=== PATIENT | male | born 1965 | race Caucasian/White ===

== ENCOUNTER 2019-11-10 14:32 | Emergency (ER) | payer BC ==
--- NOTE | 2019-11-10 14:38 | PDOC ---
History of Present Illness - General Chief Complaint: Injury Stated Complaint: FELL LAST NIGHT, FACIAL LACERATION Time Seen by Provider: 11/10/19 14:34 History Source: Patient Exam Limitations: No Limitations - History of Present Illness Initial Comments: 11/10/19 18:07 54M PMH DM, HTN presenting after a fall down 4 steps last night w/ head strike on treadmill. + Laceration. Denies LOC. Eval'd by EMS at time of incident but did not go to hospital. Endorses 1/2 pint cognac 5 hours before incident. Endorses pain of the right shoulder and left wrist. Denies f/c, cp/sob, n/v. N oncompliant w/ meds; NKA; PCP in the [place]. Does not know when last tetanus was. Past History - Past Medical History Allergies/Adverse Reactions: Allergies Allergy/AdvReac Type Severity Reaction Status Date / Time No Known Allergies Allergy Verified 11/10/19 14:42 Home Medications: Ambulatory Orders Losartan/Hydrochlorothiazide 11/10/19 Metformin HCl 11/10/19 Metoprolol Succinate 11/10/19 Review of Systems - Review of Systems Able to Perform ROS?: Yes Comments:: 11/10/19 18:07 CONSTITUTIONAL: Denies F / C HEENT: Denies changes in vision / hearing, diplopia, blurry vision RESP: Denies SOB CARD: Denies chest pain GI: Denies N / V / D, abdominal pain, bloody stool, inability to tolerate PO : Denies dysuria, hematuria, frequency SKIN: Denies rashes NEURO: Denies numbness, tingling, weakness MSK: Denies back pain *Physical Exam - Vital Signs 11/10/19 18:07 Vital Signs Temp Pulse Resp BP Pulse Ox 98.3 F 80 20 140/91 100 11/10/19 16:46 11/10/19 16:46 11/10/19 16:46 11/10/19 16:46 11/10/19 16:46 - Physical Exam 11/10/19 18:07 GEN: Well appearing, NAD, comfortable. AAOx3. HEENT: Hematoma w/ dried blood over the right brow otherwise no raccoon eyes, dai sign, obvious skull deformities; EOMI, PERRL. No facial asymmetry. Moist mucous membranes. Normal voice. Supple neck w/ FROM. CV: S1/S2, RRR, no m/r/g LUNG: CTAB, no wheezes, crackles, rales, rhonchi. GI: Soft, ndnt, +BS, no guarding, no rebound. No masses. MSK: No obvious deformities of all extremities. No TTP of the shoulders, UE, or LE. Pain w/ left wrist ROM but FROM. FROM of UE and LE b/l. BACK: No obvious deformities, no step offs, no midline TTP. There is no pelvic instability. SKIN: Warm, dry, no rashes appreciated. PSYCH: Bizzare affect and behavior. NEURO: Moving all extremities well. 5/5 UE strength b/l. 5/5 LE strength b/l. Sensation symmetric and intact throughout. Ambulates w/ normal gait. Procedures - Laceration/Wound Repair Right Eye Wound Length: to 2.5 cm Wound Explored: no foreign body present, contaminated Wound's Depth, Shape: linear, irregular Irrigated w/ Saline: Yes Betadine Prep: No Wound Repaired With: Steri-strips Medical Decision Making - Medical Decision Making 11/10/19 14:37 54M PMH DM, HTN s/p mechanical fall w/ head strike and subsequent laceration. Neuro intact. - CT head and facial bones - DX left wrist, right shoulder - Tylenol - Boostrix - clean wound and repair if needed - plan to dispo home 11/10/19 16:07 wound pressure irrigated with tap water and hydrogen peroxide steri-strips applied to right brow wound; no active bleeding CT head negative f/u CT facial bones and XRs 11/10/19 16:34 CT facial bones demonstrating b/l nasal bone, nasal spine fx No septal hematoma noted on exam ENT f/u XR reviewed and appear to be w/o fracture; f/u official read DC home w/ RTP, ENT f/u, PCP f/u Discharge - Discharge Information Problems reviewed: Yes Clinical Impression/Diagnosis: Fall Qualifiers: Encounter type: subsequent encounter Qualified Code(s): W19.XXXD - Unspecified fall, subsequent encounter Traumatic hematoma of face Qualifiers: Encounter type: initial encounter Qualified Code(s): S00.83XA - Contusion of other part of head, initial encounter Nasal bone fractures Qualifiers: Encounter type: initial encounter Fracture type: closed Qualified Code(s): S02.2XXA - Fracture of nasal bones, initial encounter for closed fracture Condition: Stable Disposition: HOME - Admission No - Follow up/Referral Referrals: Fernando Nguyễn MD [Staff Physician] - - Patient Discharge Instructions Additional Instructions: Ice the affected areas. Take tylenol as directed on the label for pain. Take your home medications as prescribed. Follow up with your Primary Care Doctor in the next 3-5 days. You have a nasal bone fracture; follow up with ENT in the next 2-4 days. Call the number on the attached referral to schedule an appointment. Return to the Emergency Department if you experience new or worsening symptoms including but not limited to changes in vision and/or hearing, loss of consciousness, weakness and/or loss of sensation. - Post Discharge Activity
[2019-11-10] MEDS ORDERED: DIPHTH,PERTUSS(ACELL),TET 0.5 ML DISP.SYRIN IM ONE ×2 (14:40→15:12)
[2019-11-10] MEDS ORDERED: ACETAMINOPHEN 500 MG TABLET (FP) PO ONE (14:40)
[2019-11-10] MEDS ORDERED: METOPROLOL TARTRATE 25 MG TABLET (FP) PO ONE (15:11)
[2019-11-10] MEDS ORDERED: ACETAMINOPHEN 325 MG TABLET (FP) ONE (15:11)
[2019-11-10] MEDS ORDERED: HYDROCHLOROTHIAZIDE 12.5 MG CAPSULE (FP) PO ONE (15:13)
[2019-11-10 15:17] VITALS: TEMP 98.3; BMI 26.4
--- NOTE | 2019-11-10 15:59 | PDOC ---
Attending Attestation - Resident Resident Name: Roshan Infante - ED Attending Attestation I have performed the following: I have examined & evaluated the patient, The case was reviewed & discussed with the resident, I agree w/resident's findings & plan, Exceptions are as noted - HPI HPI: 11/10/19 17:07 Injuries to the face, left wrist, and right shoulder last night after a fall on stairs. Admits that he was drinking yesterday. Seen by EMS but not transported at that time. Today he is worried that he may need "stitches" in his right forehead Denies loss of consciousness, headache, chest pain, shortness of breath, abdominal pain, nausea, vomiting, diarrhea, visual or focal neurologic symptoms, unsteadiness of gait. Past medical history: Hypertension, noncompliant with medication. No other known medical or surgical problems Social history admits alcohol, denies tobacco or street drugs. - Physicial Exam PE: 11/10/19 17:08 Physical exam reveals an elevated blood pressure but otherwise vital signs stable. Patient is alert and oriented x3, well-developed well-nourished, in no acute distress, cheerful and cooperative. He is not intoxicated at present Head atraumatic. There is no sign of contusion, ecchymosis, hematoma of the scalp. PERRLA, 4 mm, fundi benign with sharp disc margins and good central venous pulsations, EOMs full without diplopia, visual al intact to confrontation, no V2 numbness or orbital deformity. There is an abrasion over the forehead just above the right eyebrow, that extends the length of the eyebrow, with an underlying contusion and hematoma. There is no open laceration, no bleeding, no drainage or purulence. There is swelling and tenderness over the bridge of the nose, without obvious deformity, and no septal hematoma Neck is supple. There is no point tenderness or deformity of the cervical spine, and good range of motion without pain Lungs clear, breath sounds full bilaterally, no rib cage or chest wall deformity or tenderness CV regular without murmur rub or gallop pulses full and symmetric no JVD or edema no bruits Abdomen soft nontender without mass organomegaly Pelvis and spine without deformity or point tenderness Right shoulder mild diffuse tenderness, no point tenderness over the glenoid, AC joint, or humeral head. Full range of motion with minimal discomfort. Pulses full. No distal sensory or motor deficits Left wrist: Mild diffuse tenderness, most likely soft tissue. No deformity. Pulses full. No distal sensory or motor deficits. No snuffbox tenderness Neurological C2 to 12 intact. Strength full and symmetric. No focal sensorimotor deficits. Cerebellar intact. No asterixis or palmar erythema. Gait stable and unimpaired Impression: Head injury, no sign of significant intracranial trauma, contusion and abrasion of the right superior orbit and nose, rule out nasal fracture, rule out shoulder fracture, rule out wrist fracture. - Medical Decision Making 11/10/19 17:13 Assessment: As noted above Plan: X-rays of the shoulder and wrist are negative. CT scan of the head is negative. CT scan of the facial bones show nasal fractures, no orbital fracture or other facial fractures. Reginald to left wrist. Rest and ice to the wrist and shoulder, with early mobilization of the right shoulder, gentle range of motion stretching and exercises. Head injury instructions. Ice to nose with follow-up ENT for further treatment. No acute urgency in the absence of septal hematoma or breathing obstruction. Fully ambulatory and in no significant pain or other distress at discharge to follow-up as directed Discharge - Discharge Information Problems reviewed: Yes Clinical Impression/Diagnosis: Fall Qualifiers: Encounter type: subsequent encounter Qualified Code(s): W19.XXXD - Unspecified fall, subsequent encounter Traumatic hematoma of face Qualifiers: Encounter type: initial encounter Qualified Code(s): S00.83XA - Contusion of other part of head, initial encounter Condition: Stable Disposition: HOME - Admission No - Follow up/Referral Referrals: Fernando Nguyễn MD [Staff Physician] - - Patient Discharge Instructions Additional Instructions: Ice the affected areas. Take tylenol as directed on the label for pain. Take your home medications as prescribed. Follow up with your Primary Care Doctor in the next 3-5 days. You have a nasal bone fracture; follow up with ENT in the next 2-4 days. Call the number on the attached referral to schedule an appointment. Return to the Emergency Department if you experience new or worsening symptoms including but not limited to changes in vision and/or hearing, loss of consciousness, weakness and/or loss of sensation. - Post Discharge Activity
[2019-11-10 16:58] VITALS: BP 140/91; PULSE 80
== END 2019-11-10 17:02 | disposition home or self-care (01) ==
LOC: FER 14:32
PROC: 3E0234Z Introduction of Serum, Toxoid and Vaccine into Muscle, Percutaneous Approach (ICD-10-PCS; principal; 2019-11-10)
DX: S00.83XA Contusion of other part of head, initial encounter (principal); W10.8XXA Fall (on) (from) other stairs and steps, initial encounter
CPT/HCPCS: 70450-TC; 70486-TC; 73030-TC-RT-FY; 73110-TC-LT-FY; 90471; 90715; 99284-25

== ENCOUNTER 2024-12-06 13:14 | Inpatient (IN) | payer BC ==
[2024-12-06 14:10] LABS: EPITHELIAL CELLS 0-5 /hpf
[2024-12-06] MEDS ORDERED: LIDOCAINE 5% TOPICAL PATCH ONE (14:18)
[2024-12-06] MEDS ORDERED: ACETAMINOPHEN INJECTION 100 ML ONE (14:18)
[2024-12-06] MEDS: SODIUM CHLORIDE 0.9% 1000 ML INFUS.BAG IV ONE (14:25)
[2024-12-06] MEDS: ACETAMINOPHEN 1000 MG/100 ML BAG IVPB ONE (14:25)
[2024-12-06] MEDS: morphine CARPU-JECT 2 MG/1 ML DISP.SYRIN IVPUSH ONE (14:25)
[2024-12-06 14:41] LABS: ABSOLUTE IMMATURE GRANULOCYTES 0.04 x10^3/uL (0.0-0.031); BASOPHILS # 0.03 x10^3/uL (0.01-0.08); EOSINOPHILS # 0.08 x10^3/uL (0.04-0.54); HEMATOCRIT 53.1 % (40.1-51.0); HEMOGLOBIN 17.7 g/dL (13.7-17.5); MCHC 33.3 g/dl (32.3-36.5); MEAN CELL VOLUME 97.4 fl (79.0-92.2); MEAN PLT VOLUME 10.4 fl (9.4-12.4); MONOCYTE # 0.55 x10^3/uL (0.30-0.82); MONOCYTE % 6.8 % (5.3-12.2); PLATELET COUNT 116 x10^3/uL (163-337); RDW 14.3 % (12.2-16.4)
[2024-12-06 15:05] LABS: ALBUMIN 4.5 g/dl (3.4-5.0); CALCIUM 9.7 mg/dl (8.5-10.1); MAGNESIUM 1.7 mg/dL (1.8-2.4); POTASSIUM 3.9 mmol/L (3.5-5.1); TOT PROT 7.2 g/dl (6.4-8.2)
[2024-12-06 15:06] LABS: CHOLESTEROL 165 mg/dL (50-200); HDL CHOLESTEROL 52 mg/dL (40-60); LDL CHOLESTEROL (ONLY DFH) 84 mg/dL (5-100)
[2024-12-06] MEDS: LIDOCAINE 5% TOPICAL PATCH TP ONE (15:15)
[2024-12-06] MEDS ORDERED: MAGNESIUM 1GM/D5W - 1 GM/100 ML IVPB IVPB ONE (15:23)
[2024-12-06] MEDS: MAGNESIUM SULF 50% (8.12 MEQ/2 ML-1 GM VIAL) IVPB ONE (15:29)
[2024-12-06 15:31] LABS: INR 0.93 (0.83-1.09); PROTHROMBIN TIME (PATIENT) 10.3 SEC (9.7-13.0)
[2024-12-06 15:34] LABS: ACTIVATED PTT 29.4 SECONDS (25.2-36.5)
[2024-12-06] MEDS ORDERED: ACETAMINOPHEN 325 MG TABLET (FP) PO PRN ×2 (22:58→23:11)
[2024-12-06] MEDS ORDERED: KETOROLAC TROMETHAMINE 15 MG/ML VIAL IVPUSH PRN (23:10)
[2024-12-07] MEDS: LIDOCAINE PATCH REMOVAL MC SCH ×2
[2024-12-07] MEDS: LOSARTAN POTASSIUM 50 MG TABLET PO SCH
[2024-12-07 00:43] VITALS: BMI 25.9
[2024-12-07] MEDS: LIDOCAINE PATCH REMOVAL MC ONE (02:01)
[2024-12-07] MEDS: INSULIN ASPART SLIDING SCALE (NOVOLOG) 1 VIAL SQ SCH (06:24)
[2024-12-07 08:21] LABS: HEMOGLOBIN 15.2 g/dL (13.7-17.5); RDW 14.6 % (12.2-16.4)
[2024-12-07 08:23] LABS: HEMATOCRIT 46.6 % (40.1-51.0); MCHC 32.6 g/dl (32.3-36.5); MEAN CELL VOLUME 96.5 fl (79.0-92.2); MEAN PLT VOLUME 10.1 fl (9.4-12.4); PLATELET COUNT 89 x10^3/uL (163-337)
[2024-12-07 08:47] LABS: POTASSIUM 4.4 mmol/L (3.5-5.1)
[2024-12-07 08:53] LABS: ALBUMIN 3.3 g/dl (3.4-5.0); BLOOD UREA NITROGEN 14.3 mg/dL (7-18); CALCIUM 9.5 mg/dL (8.5-10.1); MAGNESIUM 1.9 mg/dL (1.8-2.4)
[2024-12-07 08:57] LABS: CREATININE 0.9 mg/dL (0.55-1.3); PHOSPHOROUS 3.2 mg/dL (2.5-4.9)
[2024-12-07 08:58] LABS: BILIRUBIN,TOTAL 1.1 mg/dL (0.2-1); TOT PROT 6.3 g/dl (6.4-8.2)
[2024-12-07] MEDS: ENOXAPARIN NA (PORCINE) 40 MG/0.4 ML DISP.SYRIN SQ SCH (09:34)
[2024-12-07] MEDS: LIDOCAINE 5% TOPICAL PATCH TP SCH (09:34)
[2024-12-07] MEDS: PEG 3350/NA SULF BICARB CL/KCL 4000 ML SOLN.RECON PO ONE (11:29)
[2024-12-07] MEDS: BISACODYL 5 MG TABLET.DR (FP) PO ONE (20:32)
[2024-12-07] MEDS: NICOTINE 14 MG/24 HOURS TOPICAL PATCH TD SCH (21:10)
[2024-12-08 08:19] LABS: INR 1.04 (0.83-1.09); PROTHROMBIN TIME (PATIENT) 11.3 SEC (9.7-13.0)
[2024-12-08 08:44] LABS: POTASSIUM 3.6 mmol/L (3.5-5.1)
[2024-12-08 08:47] LABS: ABSOLUTE IMMATURE GRANULOCYTES 0.04 x10^3/uL (0.0-0.031); BASOPHILS # 0.03 x10^3/uL (0.01-0.08); RDW 14.3 % (12.2-16.4)
[2024-12-08 08:49] LABS: EOSINOPHIL % 0.9 % (0.8-7.0); EOSINOPHILS # 0.05 x10^3/uL (0.04-0.54); HEMATOCRIT 48.6 % (40.1-51.0); HEMOGLOBIN 16.1 g/dL (13.7-17.5); MCHC 33.1 g/dl (32.3-36.5); MEAN CELL VOLUME 96.6 fl (79.0-92.2); MEAN PLT VOLUME 10.6 fl (9.4-12.4); MONOCYTE # 0.42 x10^3/uL (0.30-0.82); MONOCYTE % 7.8 % (5.3-12.2); PLATELET COUNT 80 x10^3/uL (163-337)
[2024-12-08 08:58] LABS: ALBUMIN 3.4 g/dl (3.4-5.0); BLOOD UREA NITROGEN 13.5 mg/dL (7-18); CALCIUM 9.5 mg/dL (8.5-10.1)
[2024-12-08 09:02] LABS: CREATININE 0.9 mg/dL (0.55-1.3)
[2024-12-08 09:03] LABS: TOT PROT 6.5 g/dl (6.4-8.2)
[2024-12-08] MEDS: CHOLECALCIFEROL (VIT D3) 1,000 UNIT (25 MCG) TABLET PO SCH (09:28)
[2024-12-08] MEDS ORDERED: CHOLECALCIFEROL (VIT D3) 5000 UNITS (125 MCG) CAP PO SCH (10:00)
[2024-12-08] MEDS ORDERED: EPINEPHrine 1:10,000 (P-F SYR) 1 MG/10 ML DISP.SYRIN ONE (13:08)
[2024-12-08 14:23] VITALS: BP 147/98; PULSE 53; RESP 16; TEMP 97.7
== END 2024-12-08 16:54 | disposition home or self-care (01) | DRG 144 ==
LOC: FER 13:14 → J8W 21:33
PROVIDERS: ADMIT Student in an Organized Health Care Education/Training Program; ATTEND Nurse Practitioner Family
PROC: 0W3P8ZZ Control Bleeding in Gastrointestinal Tract, Via Natural or Artificial Opening Endoscopic (ICD-10-PCS; 2024-12-08)
PROC: 0DBN8ZX Excision of Sigmoid Colon, Via Natural or Artificial Opening Endoscopic, Diagnostic (ICD-10-PCS; principal; 2024-12-08 13:45)
DX: S22.32XA Fracture of one rib, left side, initial encounter for closed fracture (principal); E83.42 Hypomagnesemia; D69.6 Thrombocytopenia, unspecified; N28.1 Cyst of kidney, acquired; R16.1 Splenomegaly, not elsewhere classified; E11.9 Type 2 diabetes mellitus without complications; I16.0 Hypertensive urgency; N40.2 Nodular prostate without lower urinary tract symptoms; N28.89 Other specified disorders of kidney and ureter; I10 Essential (primary) hypertension; K59.00 Constipation, unspecified; K63.9 Disease of intestine, unspecified; R31.9 Hematuria, unspecified; K63.5 Polyp of colon; F17.210 Nicotine dependence, cigarettes, uncomplicated; K57.90 Diverticulosis of intestine, part unspecified, without perforation or abscess without bleeding; X58.XXXA Exposure to other specified factors, initial encounter; Y93.89 Activity, other specified; Y92.89 Other specified places as the place of occurrence of the external cause; Y99.8 Other external cause status
CPT/HCPCS: 36415; 71046-TC-FY; 71101-TC-LT-FY; 71275-TC; 74174-TC; 74183-TC; 80053; 80061; 81003; 81015; 82272; 82607; 82746; 82962; 83036; 83735; 84100; 84153; 84484; 85025; 85027; 85610; 85730; 86803; 86850; 86900; 86901; 88305-TC; 93005; 99285-25; Q9967

== ENCOUNTER 2024-12-20 07:02 | Day surgery (SDC) | payer BC ==
[2024-12-19 12:04] VITALS: BMI 26.4
[2024-12-20 12:09] VITALS: TEMP 97.7
[2024-12-20 12:45] VITALS: BP 132/93; PULSE 64; RESP 20
== END 2024-12-20 14:30 | disposition home or self-care (01) ==
LOC: JASU-ENDO 07:02
PROVIDERS: ATTEND Internal Medicine Gastroenterology
PROC: 0FBG8ZX Excision of Pancreas, Via Natural or Artificial Opening Endoscopic, Diagnostic (ICD-10-PCS; principal; 2024-12-20 10:00)
DX: C25.2 Malignant neoplasm of tail of pancreas (principal)
CPT/HCPCS: 82962; 88305-TC; 88341-TC; 88342-TC